=== PATIENT | female | born 1950 | race Native Hawaiian/Other Pacific Islander ===

== ENCOUNTER 2017-11-22 17:07 | Observation (INO) | payer BC ==
[2017-11-22] MEDS ORDERED: Sodium Chloride 0.9% 1,000 ML IV ONE (17:46)
--- NOTE | 2017-11-22 17:57 | C.PDOC ---
History Of Present Illness 66 y/o female presents to ED with complaint sof sudden onset llq abdominal "sharp" pain last night with associated nausea. Patient states last night pain lasted few hours and subsided, was able to sleep but this morning symptoms reoccurred. Patient reports pain is worse when standing, walking or moving. Patient saw Dr. Boucher for symptoms who advised she come to ED for further evaluation. Patient denies fever, chills, vomiting, diarrhea or any other complaints at this time. Time Seen by Provider: 11/22/17 17:41 Chief Complaint (Nursing): Abdominal Pain History Per: Patient History/Exam Limitations: no limitations Onset/Duration Of Symptoms: Days Current Symptoms Are (Timing): Still Present Location Of Pain/Discomfort: LLQ Past Medical History Reviewed: Historical Data, Nursing Documentation, Vital Signs Vital Signs: Last Vital Signs Temp 98 F 11/22/17 19:58 Pulse 74 11/22/17 19:58 Resp 20 11/22/17 19:58 BP 149/76 11/22/17 19:58 Pulse Ox 99 11/22/17 20:52 - Medical History PMH: HTN Surgical History: No Surg Hx Family History: States: No Known Family Hx - Social History Hx Alcohol Use: No Hx Substance Use: No - Immunization History Hx Tetanus Toxoid Vaccination: No Hx Influenza Vaccination: No Hx Pneumococcal Vaccination: No Review Of Systems Constitutional: Negative for: Fever, Chills Gastrointestinal: Positive for: Nausea, Abdominal Pain. Negative for: Vomiting , Diarrhea Genitourinary: Negative for: Dysuria Musculoskeletal: Negative for: Back Pain Skin: Negative for: Rash Neurological: Negative for: Weakness, Numbness Physical Exam - Physical Exam Appears: Non-toxic, Other (Uncomfortable) Skin: Warm, Dry, No Rash Head: Atraumatic, Normacephalic Oral Mucosa: Moist Neck: Normal ROM, Supple Cardiovascular: Rhythm Regular Respiratory: Normal Breath Sounds, No Rales, No Rhonchi, No Wheezing Gastrointestinal/Abdominal: Bowel Sounds (Active), Soft, Tenderness (LLQ ), Guarding, No Rebound Back: No CVA Tenderness Extremity: Normal ROM, Capillary Refill (<2 seconds) Neurological/Psych: Oriented x3 ED Course And Treatment - Laboratory Results Result Diagrams: 11/22/17 17:55 11/22/17 17:55 Lab Interpretation: No Acute Changes O2 Sat by Pulse Oximetry: 99 (RA) Pulse Ox Interpretation: Normal - CT Scan/US CT abdomen and pelvis Other Rad Studies (CT/US): Read By Radiologist, Radiology Report Reviewed CT/US Interpretation: Accession No. : [id number]. Patient Name / ID : ANGELICA MCCLELLAND / [id number]. Exam Date : 11/22/2017 18:14:15 ( Approved ). Study Comment : Sex / Age : F / 66Y. Creator : Oriana Devine MD. Dictator : Oriana Devine MD. Manufacturing Mechanic : Transportation Program Director : Oriana Devine MD. Approver2 : Report Date : 11/22/2017 18:42:12. My Comment : . PROCEDURE: CT Abdomen and Pelvis without Oral or IV contrast. HISTORY: abd pain. COMPARISON: None available. TECHNIQUE: Contiguous axial images of the abdomen and pelvis. No oral or IV contrast administered. Coronal and Sagittal reformats generated and reviewed. Radiation dose: Total exam DLP = 291.53 mGy-cm. This CT exam was performed using one or more of the following dose reduction techniques: Automated exposure control, adjustment of the mA and/ or kV according to patient size, and/or use of iterative reconstruction technique. FINDINGS: There is limited evaluation of the solid organs without the administration of IV contrast. LOWER THORAX: No visible consolidation, pleural effusion, or pneumothorax. LIVER: Unremarkable unenhanced appearance. GALLBLADDER AND BILE DUCTS: Cholelithiasis. PANCREAS: Unremarkable unenhanced appearance. SPLEEN: Unremarkable unenhanced appearance. ADRENALS: Unremarkable unenhanced appearance. KIDNEYS AND URETERS: No hydronephrosis or obstructing renal calculus. Pelvic calcifications favored to reflect phlebolith rather than distal ureteral calculi. BLADDER: The urinary bladder appears unremarkable. REPRODUCTIVE: Uterus is present. APPENDIX: No secondary signs of acute appendicitis. BOWEL: The stomach is nondistended. Lack of oral contrast limits evaluation for bowel pathology. The bowel loops appear within normal limits of caliber without evidence of intestinal obstruction. Moderate constipation. PERITONEUM: No significant free fluid. No definite free air. LYMPH NODES: No bulky lymphadenopathy identified. VASCULATURE: No aortic aneurysm. BONES: Vacuum disc phenomenon L5-S1. OTHER FINDINGS: None. IMPRESSION: Cholelithiasis. No hydronephrosis or obstructing renal calculus. Pelvic calcifications favored to reflect phlebolith rather than distal ureteral calculi. Moderate constipation. Reevaluation Time: 20:51 Reassessment Condition: Improved (but pain still occurring intermittently) - Physician Consult Information Time Consulting Physician Contacted: 20:52 Physician Contacted: aMria E Leong Outcome Of Conversation: Patient to remain in hospital on observation on Dr Dashawn Boucher service. Disposition - Disposition Disposition: HOSPITALIZED Disposition Time: 21:22 Condition: STABLE - POA Present On Arrival: None - Clinical Impression Clinical Impression: Abdominal pain, left lower quadrant - Scribe Statement The provider has reviewed the documentation as recorded by the Radha Del Real All medical record entries made by the Radha were at my direction and personally dictated by me. I have reviewed the chart and agree that the record accurately reflects my personal performance of the history, physical exam, medical decision making, and the department course for this patient. I have also personally directed, reviewed, and agree with the discharge instructions and disposition.
[2017-11-22] MEDS ORDERED: Sodium Chloride 0.9% 1,000 ML ONE (17:58)
[2017-11-22 18:00] LABS: BASO # 0.1 K/uL (0.0-0.2); BASO % 0.8 % (0.0-2.0); EOS % 0.5 % (0.0-4.0); HEMOGLOBIN 14.7 g/dL (11.0-16.0); LYMPH # 1.6 K/uL (1.0-4.3); LYMPH % 18.3 % (20.0-40.0); MEAN CELL VOLUME 93.2 fL (81.0-99.0); MEAN CORPUSCULAR HEMOGLOBIN 30.7 pg (27.0-31.0); MEAN PLATELET VOLUME 8.3 fL (7.2-11.7); MONO # 0.5 K/uL (0.0-0.8); MONO % 5.9 % (0.0-10.0); NEUT # 6.6 K/uL (1.8-7.0); NEUT % 74.5 % (50.0-75.0); NRBC % 0.2 % (0.0-2.0); RBC 4.77 Mil/uL (3.80-5.20); RED CELL DISTRIBUTION WIDTH 12.6 % (11.5-14.5); WHITE BLOOD COUNT 8.9 K/uL (4.8-10.8)
[2017-11-22 18:06] LABS: URINE AMORPHOUS SEDIMENT RARE /ul (<OCC); URINE BILIRUBIN NEGATIVE (NEGATIVE); URINE BLOOD NEGATIVE (NEGATIVE); URINE CLARITY Hazy (Clear); URINE COLOR Yellow (YELLOW); URINE GLUCOSE (UA) NORMAL (Normal); URINE LEUKOCYTE ESTERASE NEG Leu/uL (Negative); URINE NITRATE NEGATIVE (NEGATIVE); URINE PROTEIN NEGATIVE (NEGATIVE)
[2017-11-22 18:17] LABS: ALBUMIN 4.6 g/dL (3.5-5.0); ALT/SGPT 37 U/L (9-52); AST/SGOT 33 U/L (14-36); BLOOD UREA NITROGEN 12 mg/dL (7-17); CALCIUM 9.1 mg/dl (8.6-10.4); GFR AFRICAN-AMERICAN > 60; GFR NON-AFRICAN AMERICAN > 60; LIPASE 282 U/L (23-300)
[2017-11-22 18:27] LABS: ALB/GLOB RATIO 1.2 (1.0-2.1)
--- NOTE | 2017-11-22 18:44 | CT ---
PROCEDURE: CT Abdomen and Pelvis without Oral or IV contrast. HISTORY: abd pain COMPARISON: None available. TECHNIQUE: Contiguous axial images of the abdomen and pelvis. No oral or IV contrast administered. Coronal and Sagittal reformats generated and reviewed. Radiation dose: Total exam DLP = 291.53 mGy-cm. This CT exam was performed using one or more of the following dose reduction techniques: Automated exposure control, adjustment of the mA and/or kV according to patient size, and/or use of iterative reconstruction technique. FINDINGS: There is limited evaluation of the solid organs without the administration of IV contrast. LOWER THORAX: No visible consolidation, pleural effusion, or pneumothorax. LIVER: Unremarkable unenhanced appearance. GALLBLADDER AND BILE DUCTS: Cholelithiasis. PANCREAS: Unremarkable unenhanced appearance. SPLEEN: Unremarkable unenhanced appearance. ADRENALS: Unremarkable unenhanced appearance. KIDNEYS AND URETERS: No hydronephrosis or obstructing renal calculus. Pelvic calcifications favored to reflect phlebolith rather than distal ureteral calculi. BLADDER: The urinary bladder appears unremarkable. REPRODUCTIVE: Uterus is present. APPENDIX: No secondary signs of acute appendicitis. BOWEL: The stomach is nondistended. Lack of oral contrast limits evaluation for bowel pathology. The bowel loops appear within normal limits of caliber without evidence of intestinal obstruction. Moderate constipation. PERITONEUM: No significant free fluid. No definite free air. LYMPH NODES: No bulky lymphadenopathy identified. VASCULATURE: No aortic aneurysm. BONES: Vacuum disc phenomenon L5-S1. OTHER FINDINGS: None. IMPRESSION: Cholelithiasis. No hydronephrosis or obstructing renal calculus. Pelvic calcifications favored to reflect phlebolith rather than distal ureteral calculi. Moderate constipation.
[2017-11-22] MEDS ORDERED: MethylPREDNISolone 40 mg Vial IVP STA (22:46)
--- NOTE | 2017-11-22 23:11 | CP.PCM.CON ---
History of Present Illness - History of Present Illness History of Present Illness: General Surgery Consult Note for Dr. Mcpherson Reason for Consult: abdominal pain 66 F with PMH of HTN and afib presents for complaint abdominal pain. Patient reports pain has been present for 1 day. Patient was at home and states pain started suddenly. It lasted for a few hours but then subsided. The pain retunred in the morning so the patinet decided to see her PMD, Dr. Boucher. He instructed ca will to come to ED to be evaluated. SHe rates pain as severe intensity. She describes pain as constant and sharp located in LLQ without radiation. Pain is exacerbated by standing, walking, and moving but nothing specifically alleviates the pain. Denies fever/chills, cp, SOB, palpitations, nausea/vomiting/diarrhea. PMD: Dr. Boucher PMH: HTN, atrial fibrillation Meds: As per EMR Allergy: Shrimp PSH: and appendectomy FH: non-contributory Social: denies tobacco/Etoh/illicit drug use Review of Systems - Review of Systems All systems: reviewed and no additional remarkable complaints except (as per HPI ) Past Patient History - Past Social History Smoking Status: Never Smoked - CARDIAC Hx Hypertension: Yes - PSYCHIATRIC Hx Substance Use: No - SURGICAL HISTORY Hx Surgeries: Yes Hx Section: Yes (X2) Meds Allergies/Adverse Reactions: Allergies Allergy/AdvReac Type Severity Reaction Status Date / Time shrimp Allergy Mild ITCHING Verified 11/22/17 22:38 - Medications Medications: Current Medications Morphine Sulfate (Morphine) 1 mg IV Q6 PRN PRN Reason: Pain, moderate (4-7) Verapamil HCl (Calan Sr Tab) 120 mg PO DAILY DEONDRE Physical Exam - Constitutional Appears: Non-toxic, No Acute Distress - Head Exam Head Exam: ATRAUMATIC, NORMOCEPHALIC - Eye Exam Eye Exam: EOMI, Normal appearance - ENT Exam ENT Exam: Mucous Membranes Moist - Respiratory Exam Respiratory Exam: NORMAL BREATHING PATTERN - Cardiovascular Exam Cardiovascular Exam: REGULAR RHYTHM - GI/Abdominal Exam GI & Abdominal Exam: Normal Bowel Sounds, Soft, Tenderness (LLQ). absent: Distended, Firm, Guarding, Hernia, Rebound, Rigid - Extremities Exam Extremities exam: Positive for: normal capillary refill, pedal pulses present - Back Exam Back exam: absent: CVA tenderness (L), CVA tenderness (R) - Neurological Exam Neurological exam: Alert, CN II-XII Intact, Oriented x3 - Psychiatric Exam Psychiatric exam: Normal Affect, Normal Mood - Skin Skin Exam: Dry, Intact, Normal Color, Warm Results - Vital Signs Recent Vital Signs: Last Vital Signs Temp 98 F 11/22/17 19:58 Pulse 74 11/22/17 19:58 Resp 20 11/22/17 19:58 BP 149/76 11/22/17 19:58 Pulse Ox 99 11/22/17 21:23 - Labs Result Diagrams: 11/22/17 17:55 11/22/17 17:55 Labs: Laboratory Results - last 24 hr 11/22/17 11/22/17 11/22/17 17:55 17:55 17:55 WBC 8.9 RBC 4.77 Hgb 14.7 Hct 44.4 MCV 93.2 MCH 30.7 MCHC 33.0 RDW 12.6 Plt Count 247 MPV 8.3 Neut % (Auto) 74.5 Lymph % (Auto) 18.3 L [place] % (Auto) 5.9 Eos % (Auto) 0.5 Baso % (Auto) 0.8 Neut # 6.6 Lymph # 1.6 [place] # 0.5 Eos # 0.0 Baso # 0.1 Sodium 138 Potassium 4.0 Chloride 103 Carbon Dioxide 26 Anion Gap 14 BUN 12 Creatinine 0.8 Est GFR ( Amer) > 60 Est GFR (Non-Af Amer) > 60 Random Glucose 118 H Calcium 9.1 Total Bilirubin 0.7 AST 33 ALT 37 Alkaline Phosphatase 62 Total Protein 8.5 H Albumin 4.6 Globulin 3.9 Albumin/Globulin Ratio 1.2 Lipase 282 Urine Color Yellow Urine Clarity Hazy Urine pH 8.0 Ur Specific [place] 1.010 Urine Protein Negative Urine Glucose (UA) Normal Urine Ketones Negative Urine Blood Negative Urine Nitrate Negative Urine Bilirubin Negative Urine Urobilinogen 2.0 H Ur Leukocyte Esterase Neg Urine WBC (Auto) < 1 Urine RBC (Auto) 1 Amorphous Sediment Rare H Assessment & Plan - Assessment and Plan (Free Text) Plan: 66 F with abdominal pain -NPO -f/u CT abdomen/pelvis with PO contrast -Analgesics PRN -Serial abdominal exam -Medical management as per primary -Will discuss with Dr. Vida Black PGY1
[2017-11-22] MEDS ORDERED: MethylPREDNISolone 40 mg Vial ONE (23:12)
--- NOTE | 2017-11-22 23:24 | CP.PCM.HP ---
History of Present Illness - History of Present Illness History of Present Illness: cc: LLQ pain HPI: Pt is a 66 year old female from the [facility], worked as a nurse, retired, who presented at the office complaining of pain at the LLQ. Only significant hx was a large BM yesterday, and pt relates that when she is lying still on her back, pain appears to subside. Ambulation and siustained increased intraabdominal pressure produces pain at LLQ. Otherwise, pt denies any N/V/chgs in BM. PMHx is significant only for HTN and/or palpitations. Present on Admission - Present on Admission Any Indicators Present on Admission: No History of DVT/PE: No History of Uncontrolled Diabetes: No Urinary Catheter: No Decubitus Ulcer Present: No History Surgical Site Infection Following: None Review of Systems - Review of Systems Review of Systems: abdominal pain at LLQ Past Patient History - Tetanus Immunizations Tetanus Immunization: Unknown - Past Medical History & Family History Past Medical History?: Yes Past Family History: Reviewed and not pertinent - Past Social History Smoking Status: Never Smoked Chewing Tobacco Use: No Cigar Use: No Alcohol: None Drugs: Denies - CARDIAC Hx Hypertension: Yes - PSYCHIATRIC Hx Substance Use: No - SURGICAL HISTORY Hx Surgeries: Yes Hx Section: Yes (X2) Meds Allergies/Adverse Reactions: Allergies Allergy/AdvReac Type Severity Reaction Status Date / Time shrimp Allergy Mild ITCHING Verified 11/22/17 22:38 Physical Exam - Constitutional Appears: Non-toxic, No Acute Distress - Head Exam Head Exam: NORMAL INSPECTION - Eye Exam Eye Exam: Normal appearance Pupil Exam: NORMAL ACCOMODATION - Neck Exam Neck exam: Positive for: Full Rom - Respiratory Exam Respiratory Exam: NORMAL BREATHING PATTERN - Cardiovascular Exam Cardiovascular Exam: Diastolic murmur - GI/Abdominal Exam GI & Abdominal Exam: Normal Bowel Sounds Additional comments: + tenderness at LLQ 2" Left of umbilicus and 2" above the inguinal crease - Rectal Exam Rectal Exam: Deferred - Exam Exam: NORMAL INSPECTION External exam: NORMAL EXTERNAL EXAM - Extremities Exam Extremities exam: Positive for: normal inspection - Back Exam Back exam: NORMAL INSPECTION - Neurological Exam Neurological exam: Normal Gait - Psychiatric Exam Psychiatric exam: Normal Affect - Skin Skin Exam: Intact, Normal Color Results - Vital Signs Recent Vital Signs: Last Vital Signs Temp 98 F 11/22/17 19:58 Pulse 74 11/22/17 19:58 Resp 20 11/22/17 19:58 BP 149/76 11/22/17 19:58 Pulse Ox 99 11/22/17 21:23 - Labs Result Diagrams: 11/22/17 17:55 11/22/17 17:55 Labs: Laboratory Results - last 24 hr 11/22/17 11/22/17 11/22/17 17:55 17:55 17:55 WBC 8.9 RBC 4.77 Hgb 14.7 Hct 44.4 MCV 93.2 MCH 30.7 MCHC 33.0 RDW 12.6 Plt Count 247 MPV 8.3 Neut % (Auto) 74.5 Lymph % (Auto) 18.3 L [place] % (Auto) 5.9 Eos % (Auto) 0.5 Baso % (Auto) 0.8 Neut # 6.6 Lymph # 1.6 [place] # 0.5 Eos # 0.0 Baso # 0.1 Sodium 138 Potassium 4.0 Chloride 103 Carbon Dioxide 26 Anion Gap 14 BUN 12 Creatinine 0.8 Est GFR ( Amer) > 60 Est GFR (Non-Af Amer) > 60 Random Glucose 118 H Calcium 9.1 Total Bilirubin 0.7 AST 33 ALT 37 Alkaline Phosphatase 62 Total Protein 8.5 H Albumin 4.6 Globulin 3.9 Albumin/Globulin Ratio 1.2 Lipase 282 Urine Color Yellow Urine Clarity Hazy Urine pH 8.0 Ur Specific [place] 1.010 Urine Protein Negative Urine Glucose (UA) Normal Urine Ketones Negative Urine Blood Negative Urine Nitrate Negative Urine Bilirubin Negative Urine Urobilinogen 2.0 H Ur Leukocyte Esterase Neg Urine WBC (Auto) < 1 Urine RBC (Auto) 1 Amorphous Sediment Rare H Assessment & Plan (1) Abdominal pain, left lower quadrant Status: Acute Priority: High Comment: will determine with certainty whether pt is having functional motility issues of the GI tractd vs a hernia problem and will keep the pt at least overnight to determine progress of complaint. Decision To Admit - Pt Status Changed To: Hospital Disposition Of: Inpatient - Admit Certification Admit to Inpatient:: After my assessment, the patient will require hospitalization for at least two midnights. This is because of the severity of symptoms shown, intensity of services needed, and/or the medical risk in this patient being treated as an outpatient. - InPatient: Physician Admission Certification:: Pt will require admission for inpatient work up and consultation as my impression of an incarcerated hernia may prove life-threatening should rupture of viscus happen. - . Bed Request Type: Regular
[2017-11-22] MEDS: Verapamil 120 mg ER Tab PO SCH (23:29)
[2017-11-23] MEDS ORDERED: Iohexol 240 (50 ml) ONE (00:34)
[2017-11-23] MEDS ORDERED: Iohexol 240 (50 ml) PO ONE (00:35)
--- NOTE | 2017-11-23 03:23 | CT ---
EXAM: CT Abdomen and Pelvis Without Intravenous Contrast CLINICAL HISTORY: 66 years old, female; Pain; Abdominal pain and other: Suspected ventral hernia; Patient HX: 11-22-17 TECHNIQUE: Axial computed tomography images of the abdomen and pelvis without intravenous contrast. All CT scans at this facility use one or more dose reduction techniques, viz.: automated exposure control; ma/kV adjustment per patient size (including targeted exams where dose is matched to indication; i.e. head); or iterative reconstruction technique. Oral contrast was administered. 583 images are submitted. Oral contrast was administered. Coronal and sagittal reformatted images were created and reviewed. COMPARISON: No relevant prior studies available. FINDINGS: Lower thorax: No acute findings. ABDOMEN:Limitations: Absence of IV contrast decreases sensitivity for detecting solid organ and vascular abnormality and injury. Liver: Unremarkable. Gallbladder and bile ducts: Partially distended gallbladder with gallstones gallbladder wall thickening.If clinically warranted, a right upper quadrant ultrasound and correlation with LFTs may be helpful for further assessment. Pancreas: Unremarkable. No ductal dilation. Spleen: Unremarkable. No splenomegaly. Adrenals: Unremarkable. No mass. Kidneys and ureters: Unremarkable. No obstructing stones. No hydronephrosis. Stomach and bowel: Unremarkable. No obstruction. No mucosal thickening. Appendix: The appendix is not seen. PELVIS: Bladder: Partially distended bladder. Reproductive: Retroverted uterus. ABDOMEN and PELVIS: Intraperitoneal space: Unremarkable. No free air. No significant fluid collection. Bones/joints: L5-S1 vacuum degenerative disc disease. No acute fracture. No dislocation. Soft tissues: Unremarkable. Vasculature: Pelvic phleboliths. The aorta demonstrates calcified plaque and is mildly ectatic but normal in caliber. No abdominal aortic aneurysm. Lymph nodes: Unremarkable. No enlarged lymph nodes. IMPRESSION: 1. Partially distended gallbladder with gallstones gallbladder wall thickening.If clinically warranted, a right upper quadrant ultrasound and correlation with LFTs may be helpful for further assessment.
--- NOTE | 2017-11-23 09:00 | CP.PCM.PN ---
Subjective - Date & Time of Evaluation Date of Evaluation: 11/23/17 Time of Evaluation: 08:57 - Subjective Subjective: Surgery Pt s&e. NAEON. Denies F/C/N/V/D/Cp/SOB. pain controlled. Objective - Vital Signs/Intake and Output Vital Signs (last 24 hours): Temp Pulse Resp BP Pulse Ox 98.0 F 80 16 118/69 97 11/23/17 08:24 11/23/17 08:24 11/23/17 08:24 11/23/17 08:24 11/23/17 08:24 - Medications Medications: Current Medications Docusate Sodium (Colace) 100 mg PO DAILY [facility] Enoxaparin Sodium (Lovenox) 30 mg SC 1000,2200 [facility] Morphine Sulfate (Morphine) 1 mg IV Q6 PRN PRN Reason: Pain, moderate (4-7) Verapamil HCl (Calan Sr Tab) 120 mg PO DAILY DEONDRE Last Admin: 11/22/17 23:29 Dose: 120 mg - Labs Labs: 11/22/17 17:55 11/22/17 17:55 - Constitutional Appears: No Acute Distress - Head Exam Head Exam: ATRAUMATIC, NORMAL INSPECTION, NORMOCEPHALIC - Eye Exam Eye Exam: EOMI, Normal appearance, PERRL Pupil Exam: NORMAL ACCOMODATION, PERRL - ENT Exam ENT Exam: Mucous Membranes Moist, Normal Exam - Neck Exam Neck Exam: Full ROM, Normal Inspection. absent: Lymphadenopathy - Respiratory Exam Respiratory Exam: Clear to Ausculation Bilateral, NORMAL BREATHING PATTERN - Cardiovascular Exam Cardiovascular Exam: REGULAR RHYTHM, +S1, +S2. absent: Murmur - GI/Abdominal Exam GI & Abdominal Exam: Soft, Tenderness, Normal Bowel Sounds. absent: Distended, Firm, Guarding, Rigid, Hernia - Extremities Exam Extremities Exam: Full ROM, Normal Capillary Refill, Normal Inspection. absent : Joint Swelling, Pedal Edema - Back Exam Back Exam: NORMAL INSPECTION - Psychiatric Exam Psychiatric exam: Normal Affect, Normal Mood - Skin Skin Exam: Dry, Intact, Normal Color, Warm Assessment and Plan - Assessment and Plan (Free Text) Assessment: 66 F with abdominal pain: No venral or inguinal hernia appreciated. CT : constipation -No surgical intervention needed. -Regular diet. -Enema/ Stool softner. -Analgesics PRN -Medical management as per primary -Discussed with Dr. Mcpherson
[2017-11-23] MEDS: Enoxaparin 30 mg Syringe SC SCH ×2 (11:02→22:10)
[2017-11-23] MEDS: Verapamil 120 mg ER Tab PO SCH (11:03)
[2017-11-23 14:36] VITALS: RESP 20
[2017-11-23] MEDS ORDERED: Verapamil 120 mg ER Tab PO SCH (22:00)
--- NOTE | 2017-11-24 06:32 | CP.PCM.DIS ---
Provider - Provider Date of Admission: 11/22/17 21:23 Attending physician: Dashawn Boucher MD Primary care physician: Dr. Maria E Boucher-Chelo Consults: Surgery: Dr. Ozzie Mcpherson Time Spent in preparation of Discharge (in minutes): 30 Diagnosis - Discharge Diagnosis (1) Abdominal pain, left lower quadrant Status: Acute Priority: High Comment: appears resolved Hospital Course - Lab Results Lab Results: Micro Results 11/22/17 18:06 Urine Urine Culture - Final No Growth (<1,000 CFU/ML) Most Recent Lab Values WBC 8.9 K/uL (4.8-10.8) 11/22/17 17:55 RBC 4.77 Mil/uL (3.80-5.20) 11/22/17 17:55 Hgb 14.7 g/dL (11.0-16.0) 11/22/17 17:55 Hct 44.4 % (34.0-47.0) 11/22/17 17:55 MCV 93.2 fL (81.0-99.0) 11/22/17 17:55 MCH 30.7 pg (27.0-31.0) 11/22/17 17:55 MCHC 33.0 g/dL (33.0-37.0) 11/22/17 17:55 RDW 12.6 % (11.5-14.5) 11/22/17 17:55 Plt Count 247 K/uL (130-400) 11/22/17 17:55 MPV 8.3 fL (7.2-11.7) 11/22/17 17:55 Neut % (Auto) 74.5 % (50.0-75.0) 11/22/17 17:55 Lymph % (Auto) 18.3 % (20.0-40.0) L 11/22/17 17:55 [place] % (Auto) 5.9 % (0.0-10.0) 11/22/17 17:55 Eos % (Auto) 0.5 % (0.0-4.0) 11/22/17 17:55 Baso % (Auto) 0.8 % (0.0-2.0) 11/22/17 17:55 Neut # 6.6 K/uL (1.8-7.0) 11/22/17 17:55 Lymph # 1.6 K/uL (1.0-4.3) 11/22/17 17:55 Dickenson # 0.5 K/uL (0.0-0.8) 11/22/17 17:55 Eos # 0.0 K/uL (0.0-0.7) 11/22/17 17:55 Baso # 0.1 K/uL (0.0-0.2) 11/22/17 17:55 Sodium 138 mmol/L (132-148) 11/22/17 17:55 Potassium 4.0 mmol/L (3.6-5.2) 11/22/17 17:55 Chloride 103 mmol/L (98-107) 11/22/17 17:55 Carbon Dioxide 26 mmol/L (22-30) 11/22/17 17:55 Anion Gap 14 (10-20) 11/22/17 17:55 BUN 12 mg/dL (7-17) 11/22/17 17:55 Creatinine 0.8 mg/dL (0.7-1.2) 11/22/17 17:55 Est GFR ( Amer) > 60 11/22/17 17:55 Est GFR (Non-Af Amer) > 60 11/22/17 17:55 Random Glucose 118 mg/dL (65-105) H 11/22/17 17:55 Calcium 9.1 mg/dl (8.6-10.4) 11/22/17 17:55 Total Bilirubin 0.7 mg/dL (0.2-1.3) 11/22/17 17:55 AST 33 U/L (14-36) 11/22/17 17:55 ALT 37 U/L (9-52) 11/22/17 17:55 Alkaline Phosphatase 62 U/L (38-126) 11/22/17 17:55 Total Protein 8.5 g/dL (6.3-8.3) H 11/22/17 17:55 Albumin 4.6 g/dL (3.5-5.0) 11/22/17 17:55 Globulin 3.9 gm/dL (2.2-3.9) 11/22/17 17:55 Albumin/Globulin Ratio 1.2 (1.0-2.1) 11/22/17 17:55 Lipase 282 U/L (23-300) 11/22/17 17:55 Urine Color Yellow (YELLOW) 11/22/17 17:55 Urine Clarity Hazy (Clear) 11/22/17 17:55 Urine pH 8.0 (5.0-8.0) 11/22/17 17:55 Ur Specific [place] 1.010 (1.003-1.030) 11/22/17 17:55 Urine Protein Negative mg/dL (NEGATIVE) 11/22/17 17:55 Urine Glucose (UA) Normal mg/dL (Normal) 11/22/17 17:55 Urine Ketones Negative mg/dL (NEGATIVE) 11/22/17 17:55 Urine Blood Negative (NEGATIVE) 11/22/17 17:55 Urine Nitrate Negative (NEGATIVE) 11/22/17 17:55 Urine Bilirubin Negative (NEGATIVE) 11/22/17 17:55 Urine Urobilinogen 2.0 mg/dL (0.2-1.0) H 11/22/17 17:55 Ur Leukocyte Esterase Neg Rosanna/uL (Negative) 11/22/17 17:55 Urine WBC (Auto) < 1 /hpf (0-5) 11/22/17 17:55 Urine RBC (Auto) 1 /hpf (0-3) 11/22/17 17:55 Amorphous Sediment Rare /ul (<OCC) H 11/22/17 17:55 - Hospital Course Hospital Course: Pt Patient was admitted with left lower quadrant abdominal pain confined mainly to area 2 inches to the left of the umbilicus and 2 inches above the inquinal crease. Evaluation of the ER did not show any pathology as well as a final CT scan of abdomen with oral contrast. Pain still persisted until patient had another significant BM. Patient was discharged home stable with no pain Discharge Exam - Head Exam Head Exam: NORMAL INSPECTION - Eye Exam Eye Exam: Normal appearance Pupil Exam: NORMAL ACCOMODATION - ENT Exam ENT Exam: Normal Exam - Neck Exam Neck exam: Normal Inspection - Respiratory Exam Respiratory Exam: Clear to PA & Lateral, NORMAL BREATHING PATTERN - Cardiovascular Exam Cardiovascular Exam: REGULAR RHYTHM - GI/Abdominal Exam GI & Abdominal Exam: Normal Bowel Sounds - Rectal Exam Rectal Exam: Deferred - Extremities Exam Extremities exam: normal inspection - Back Exam Back exam: NORMAL INSPECTION - Neurological Exam Neurological exam: Normal Gait - Psychiatric Exam Psychiatric exam: Normal Affect, Normal Mood - Skin Skin Exam: Normal Color Discharge Plan - Follow Up Plan Condition: STABLE Disposition: HOME/ ROUTINE Additional Instructions: > Pt to follow up at office with Dr. Maria E Boucher-Chelo for referral to GI ( Dr. Casillas) for outpatient colonoscopy. > Continue taking verapamil SR at home. > IF any new symtpoms occur or in the interim when Dr. Ifeanyi Boucher is away, pt ay call [phone] (Dr. Heladio Boucher) for instructions
[2017-11-24 08:03] VITALS: BP 114/68; PULSE 68; TEMP 98; O2SAT 96
[2017-11-24] MEDS ORDERED: Verapamil 120 mg ER Tab PO SCH (10:00)
== END 2017-11-24 14:08 | disposition home or self-care (01) ==
LOC: C.ER 17:07 → C.9E 21:23 → C.3T 11-23 12:20
PROVIDERS: ADMIT Family Medicine; ATTEND Family Medicine
DX: R10.32 Left lower quadrant pain (principal); I48.91 Unspecified atrial fibrillation; I10 Essential (primary) hypertension
CPT/HCPCS: 36415; 74176; 80053; 81001; 82378; 83690; 85025; 87086; 96360; 96372; 96374; 99285; G0378; J1650; J2920; J7040; Q9966

== ENCOUNTER 2019-01-16 09:50 | Inpatient (IN) | payer MEDICARE, BC ==
[2019-01-16] MEDS ORDERED: Sodium Chloride 0.9% 1,000 ML IV SCH (10:30)
--- NOTE | 2019-01-16 10:41 | C.PDOC ---
History Of Present Illness 68 year old female sent to ED by Dr. Boston for redness and swelling to the third finger of the distal phalanx of the right hand. Patient is to be admitted to the OR for I&D, as per Dr. Boston. Patient has a past medical history of hypertension. Patient denies fever, chills, numbness, or weakness. Time Seen by Provider: 01/16/19 10:03 Chief Complaint (Nursing): Abnormal Skin Integrity History Per: Patient History/Exam Limitations: no limitations Onset/Duration Of Symptoms: Unknown Current Symptoms Are (Timing): Still Present Location Of Injury: Right: Hand (third finger) Quality Of Symptoms: Painful, Swollen Additional History Per: Patient Past Medical History Reviewed: Historical Data, Nursing Documentation, Vital Signs Vital Signs: Last Vital Signs Temp 98 F 01/16/19 09:59 Pulse 90 01/16/19 09:59 Resp 16 01/16/19 09:59 BP 156/81 H 01/16/19 09:59 Pulse Ox 98 01/16/19 09:59 - Medical History PMH: HTN Surgical History: No Surg Hx Family History: States: Unknown Family Hx - Social History Hx Alcohol Use: No Hx Substance Use: No - Immunization History Hx Tetanus Toxoid Vaccination: No Hx Influenza Vaccination: No Hx Pneumococcal Vaccination: No Review Of Systems Constitutional: Negative for: Fever, Chills, Weakness Musculoskeletal: Positive for: Other (redness and swelling to the third finger of the distal phalanx of the right hand) Skin: Positive for: Other (finger swelling) Neurological: Negative for: Weakness, Numbness, Dizziness Physical Exam - Physical Exam Appears: Non-toxic Skin: Normal Color, Warm, Dry Head: Atraumatic, Normacephalic Neck: Normal ROM, Supple Chest: Symmetrical, No Deformity Cardiovascular: Rhythm Regular, No Murmur Respiratory: No Accessory Muscle Use Extremity: Swelling (swelling and redness to the third finger of the distal phalanx of the right hand) Pulses: Left Radial: Normal, Right Radial: Normal Neurological/Psych: Oriented x3, Normal Speech, Normal Cognition Gait: Steady ED Course And Treatment - Laboratory Results Result Diagrams: 01/16/19 11:18 Lab Interpretation: Normal ECG: Interpreted By Oh ECG Rhythm: Sinus Rhythm, Nonspecific Changes ECG Interpretation: No Acute Changes Rate From EC O2 Sat by Pulse Oximetry: 98 (in RA) Pulse Ox Interpretation: Normal - Other Rad CXR X-Ray: Interpreted by Me, Viewed By Me Interpretation: IMPRESSION: Emphysema/COPD. No focal consolidation. Progress Note: IVF NSS Reassessment Condition: Improved Medical Decision Making Medical Decision Making: Impression: 68 year old female present to ED with redness and swelling to the distal phalanx of the right hand Plan: EKG and CXR ordered for patient Labs with UA and CBC ordered for patient Patient given IV fluids Patient is to be admitted to the OR for I and D as per Disposition Discussed With .: Raad Boston Doctor Will See Patient In The: Hospital - Disposition Disposition: HOSPITALIZED Disposition Time: 11:00 Condition: STABLE - POA Present On Arrival: None - Clinical Impression Clinical Impression: Cellulitis - PA / SHEET WRITER / Resident Statement MD/DO has reviewed & agrees with the documentation as recorded. (Shreya Guzman) - Scribe Statement The provider has reviewed the documentation as recorded by the Scribe (Shreya Guzman) All medical record entries made by the Scribe were at my direction and personally dictated by me. I have reviewed the chart and agree that the record accurately reflects my personal performance of the history, physical exam, medical decision making, and the department course for this patient. I have also personally directed, reviewed, and agree with the discharge instructions and disposition.
--- NOTE | 2019-01-16 11:06 | RAD ---
HISTORY: SOB COMPARISON: None available TECHNIQUE: Chest PA and lateral FINDINGS: LUNGS: Increased lucencies especially within the bilateral upper lung lou compatible with underlying emphysema. Hyperinflation with flattening of the hemidiaphragm may be seen in the setting of COPD. No focal consolidation. Please note that chest x-ray has limited sensitivity for the detection of pulmonary masses. PLEURA: No significant pleural effusion identified. No definite pneumothorax . CARDIOVASCULAR: Heart size appears within normal limits. Faint atherosclerotic calcifications of the aorta. OSSEOUS STRUCTURES: Osseous demineralization. Mild degenerative changes. VISUALIZED UPPER ABDOMEN: Unremarkable. OTHER FINDINGS: None. IMPRESSION: Emphysema/COPD. No focal consolidation.
[2019-01-16 11:31] LABS: SQUAMOUS EPITHIAL < 1 /hpf (0-5); URINE BILIRUBIN NEGATIVE (NEGATIVE); URINE BLOOD NEGATIVE (NEGATIVE); URINE CLARITY Clear (Clear); URINE COLOR Straw (YELLOW); URINE GLUCOSE (UA) NORMAL (Normal); URINE LEUKOCYTE ESTERASE NEG Leu/uL (Negative); URINE PROTEIN NEGATIVE (NEGATIVE); URINE UROBILINOGEN NORMAL mg/dL (0.2-1.0)
[2019-01-16 11:33] LABS: BASO # 0.1 K/uL (0.0-0.2); BASO % 1.3 % (0.0-2.0); EOS # 0.1 K/uL (0.0-0.7); EOS % 2.3 % (0.0-4.0); HEMOGLOBIN 14.3 g/dL (11.0-16.0); LYMPH # 1.5 K/uL (1.0-4.3); LYMPH % 28.9 % (20.0-40.0); MEAN CORPUSCULAR HEMOGLOBIN 31.6 pg (27.0-31.0); MEAN CORPUSCULAR HGB CONC 32.8 g/dL (33.0-37.0); MEAN PLATELET VOLUME 9.4 fL (7.2-11.7); MONO # 0.4 K/uL (0.0-0.8); MONO % 7.2 % (0.0-10.0); NEUT # 3.2 K/uL (1.8-7.0); NEUT % 60.3 % (50.0-75.0); NRBC % 0.1 % (0.0-2.0); RBC 4.54 Mil/uL (3.80-5.20); RED CELL DISTRIBUTION WIDTH 13.6 % (11.5-14.5); WHITE BLOOD COUNT 5.3 K/uL (4.8-10.8)
[2019-01-16 11:34] LABS: MEAN CELL VOLUME 96.3 fL (81.0-99.0)
[2019-01-16 11:51] LABS: ALB/GLOB RATIO 1.5 (1.0-2.1); ALBUMIN 4.6 g/dL (3.5-5.0); BLOOD UREA NITROGEN 14 mg/dL (7-17); CALCIUM 9.2 mg/dl (8.6-10.4); GFR NON-AFRICAN AMERICAN > 60
[2019-01-16 11:55] LABS: ALT/SGPT 28 U/L (9-52); AST/SGOT 50 U/L (14-36)
[2019-01-16] MEDS ORDERED: Lidocaine Hydrochloride 10 ML INJ ONE (14:14)
[2019-01-16] MEDS ORDERED: Bupivacaine HCl 0.5% PF (10 ml) Inj ONE (14:14)
[2019-01-16] MEDS ORDERED: ceFAZolin 1 gm in NS 1 GM/100 ML BAG IVPB ONE (14:14)
[2019-01-16] MEDS ORDERED: Bacitracin Ointment 30 GM TUBE ONE (14:39)
[2019-01-16] MEDS ORDERED: Lactated Ringer's 1,000 ML IV ONE (14:45)
[2019-01-16] MEDS ORDERED: Oxycodone/Acetaminophen 5/325 mg Tab PO PRN (15:08)
--- NOTE | 2019-01-16 21:17 | CP.PCM.CON ---
<SajitimAlinapavan - Last Filed: 01/16/19 21:10> History of Present Illness - History of Present Illness History of Present Illness: Medicine Consult Note 68 year old female with PMHx of HTN admitted for treatment of infected ganglion cyst on the 3rd digit of Right hand. Patient is POD # 0 s/p ganglion cyst removal/I&D. Medicine team consulted for medical management. Patient offers no complaints at this time. ROS POSITIVES: N/A NEGATIVES: Fever, chills, headache, chest pain, palpitations, SOB, nausea, vomiting, changes in bowel habits, urinary symptoms. PMHx: HTN PSHx: x 2 Allergies: NKDA SocialHx: Denies tobacco, EtoH, & Illicit Drug USe Hos: LLQ Abdominal Pain in 2018, Palpitations FamHx: Denies Meds: Verapamil HCL (Verelan PM) 100mg PO HS Review of Systems - Review of Systems Review of Systems: As per HPI Past Patient History - Tetanus Immunizations Tetanus Immunization: Unknown - Past Medical History & Family History Past Medical History?: Yes - Past Social History Smoking Status: Never Smoked - CARDIAC Hx Hypertension: Yes - MUSCULOSKELETAL/RHEUMATOLOGICAL Hx Falls: No - PSYCHIATRIC Hx Substance Use: No - SURGICAL HISTORY Hx Surgeries: Yes Hx Section: Yes (X2) Meds Allergies/Adverse Reactions: Allergies Allergy/AdvReac Type Severity Reaction Status Date / Time No Known Allergies Allergy Verified 01/16/19 10:01 - Medications Medications: Current Medications Diltiazem HCl (Cardizem Cd) 120 mg PO HS DEONDRE Sodium Chloride (Sodium Chloride 0.9%) 1,000 mls @ 100 mls/hr IV .Q10H [facility] Last Admin: 01/16/19 11:35 Dose: 100 mls/hr Cefazolin Sodium 1,000 mg/ (Sodium Chloride) 100 mls @ 100 mls/hr IVPB Q8H DEONDRE; Protocol Oxycodone/Acetaminophen (Percocet 5/325 Mg Tab) 2 tab PO Q4H PRN PRN Reason: pain Stop: 01/19/19 15:09 Physical Exam - Constitutional Appears: Well, Non-toxic, No Acute Distress - Head Exam Head Exam: ATRAUMATIC, NORMAL INSPECTION, NORMOCEPHALIC - Eye Exam Eye Exam: EOMI. absent: Scleral icterus - ENT Exam ENT Exam: Mucous Membranes Moist - Respiratory Exam Respiratory Exam: Clear to Auscultation Bilateral, NORMAL BREATHING PATTERN. absent: Accessory Muscle Use - Cardiovascular Exam Cardiovascular Exam: RRR, +S1, +S2. absent: JVD - GI/Abdominal Exam GI & Abdominal Exam: Normal Bowel Sounds, Soft. absent: Tenderness - Extremities Exam Extremities exam: Positive for: normal capillary refill. Negative for: pedal edema Additional comments: Right Hand with Dressing (Clean, Dry, and intact), Decreased Sensation if right distal upper Ext. s/p Anaesthesia, 2+ radial pulses B/L, No Motor deficit.. - Neurological Exam Neurological exam: Alert, Oriented x3 - Psychiatric Exam Psychiatric exam: Normal Affect, Normal Mood - Skin Skin Exam: Dry, Intact, Normal Color, Warm Results - Vital Signs Recent Vital Signs: Last Vital Signs Temp 97.5 F L 01/16/19 18:21 Pulse 75 01/16/19 18:21 Resp 18 01/16/19 18:21 BP 138/73 01/16/19 18:21 Pulse Ox 97 01/16/19 18:21 - Labs Result Diagrams: 01/16/19 11:18 01/16/19 11:18 Labs: Laboratory Results - last 24 hr 01/16/19 01/16/19 01/16/19 11:18 11:18 11:18 WBC 5.3 RBC 4.54 Hgb 14.3 Hct 43.7 MCV 96.3 D MCH 31.6 H MCHC 32.8 L RDW 13.6 Plt Count 162 MPV 9.4 Neut % (Auto) 60.3 Lymph % (Auto) 28.9 [place] % (Auto) 7.2 Eos % (Auto) 2.3 Baso % (Auto) 1.3 Neut # (Auto) 3.2 Lymph # (Auto) 1.5 [place] # (Auto) 0.4 Eos # (Auto) 0.1 Baso # (Auto) 0.1 Sodium 139 Potassium 4.1 Chloride 106 Carbon Dioxide 25 Anion Gap 11 BUN 14 Creatinine 0.7 Est GFR ( Amer) > 60 Est GFR (Non-Af Amer) > 60 Random Glucose 109 H Calcium 9.2 Total Bilirubin 0.8 AST 50 H D ALT 28 Alkaline Phosphatase 65 Total Protein 7.8 Albumin 4.6 Globulin 3.2 Albumin/Globulin Ratio 1.5 Urine Color Straw Urine Clarity Clear Urine pH 7.0 Ur Specific [place] 1.009 Urine Protein Negative Urine Glucose (UA) Normal Urine Ketones Negative Urine Blood Negative Urine Nitrate Negative Urine Bilirubin Negative Urine Urobilinogen Normal Ur Leukocyte Esterase Neg Urine WBC (Auto) < 1 Urine RBC (Auto) < 1 Ur Squamous Epith Cells < 1 Assessment & Plan - Assessment and Plan (Free Text) Assessment: 68 year old female with PMHx of HTN admitted for treatment of infected ganglion cyst on the 3rd digit of Right hand. . Medicine team consulted for medical management Plan: Right Hand 3rd Digit Ganglion Cyst/Abscess. Mgmt per Primary (Dr. Boston) Cefazolin 1gram Q8H Percocet 2tabs PO Q4H PRN NS 100mls/hr HTN Mgmt: Home Verapamil (Capsule form) not in formulary Replaced with Cardizem 120mg PO HS Proph SCD Patient seen and discussed with Attending (Dr. Dao) Yon Paulson, PGY-2 <Omar Dao - Last Filed: 01/17/19 07:48> Meds - Medications Medications: Current Medications Diltiazem HCl (Cardizem Cd) 120 mg PO HS DEONDRE Last Admin: 01/16/19 22:08 Dose: 120 mg Sodium Chloride (Sodium Chloride 0.9%) 1,000 mls @ 100 mls/hr IV .Q10H [facility] Last Admin: 01/16/19 11:35 Dose: 100 mls/hr Cefazolin Sodium 1,000 mg/ (Sodium Chloride) 100 mls @ 100 mls/hr IVPB Q8H DEONDRE; Protocol Last Admin: 01/17/19 06:20 Dose: 100 mls/hr Oxycodone/Acetaminophen (Percocet 5/325 Mg Tab) 2 tab PO Q4H PRN PRN Reason: pain Stop: 01/19/19 15:09 Results - Vital Signs Recent Vital Signs: Last Vital Signs Temp 97.5 F L 01/17/19 04:30 Pulse 67 01/17/19 04:30 Resp 20 01/17/19 04:30 BP 111/65 01/17/19 04:30 Pulse Ox 97 01/17/19 04:30 - Labs Result Diagrams: 01/16/19 11:18 01/16/19 11:18 Labs: Laboratory Results - last 24 hr 01/16/19 01/16/19 01/16/19 11:18 11:18 11:18 WBC 5.3 RBC 4.54 Hgb 14.3 Hct 43.7 MCV 96.3 D MCH 31.6 H MCHC 32.8 L RDW 13.6 Plt Count 162 MPV 9.4 Neut % (Auto) 60.3 Lymph % (Auto) 28.9 [place] % (Auto) 7.2 Eos % (Auto) 2.3 Baso % (Auto) 1.3 Neut # (Auto) 3.2 Lymph # (Auto) 1.5 [place] # (Auto) 0.4 Eos # (Auto) 0.1 Baso # (Auto) 0.1 Sodium 139 Potassium 4.1 Chloride 106 Carbon Dioxide 25 Anion Gap 11 BUN 14 Creatinine 0.7 Est GFR ( Amer) > 60 Est GFR (Non-Af Amer) > 60 Random Glucose 109 H Calcium 9.2 Total Bilirubin 0.8 AST 50 H D ALT 28 Alkaline Phosphatase 65 Total Protein 7.8 Albumin 4.6 Globulin 3.2 Albumin/Globulin Ratio 1.5 Urine Color Straw Urine Clarity Clear Urine pH 7.0 Ur Specific [place] 1.009 Urine Protein Negative Urine Glucose (UA) Normal Urine Ketones Negative Urine Blood Negative Urine Nitrate Negative Urine Bilirubin Negative Urine Urobilinogen Normal Ur Leukocyte Esterase Neg Urine WBC (Auto) < 1 Urine RBC (Auto) < 1 Ur Squamous Epith Cells < 1 Attending/Attestation - Attestation I have personally seen and examined this patient.: Yes I have fully participated in the care of the patient.: Yes I have reviewed all pertinent clinical information: Yes Notes (Text): 01/17/19 07:42 Medical consult: Patient was seen and examined by me. Reviewed the above note by the resident and agree with the above Patient was seen on 6T last night. She was not in any acute distress, denies chest pain, denied shortness of breath, denies palpitations Her current medication include cardizem. There is already an order for percocet however the patient reports she is not in any pain at this time She is S/P surgery of ganglion cyst. I was informed the patient is going back to OR again and then potentially discharged afterwards Omar Dao
[2019-01-16] MEDS: diltiaZEM 120 mg/24 Hours CD Cap PO SCH (22:08)
[2019-01-17 00:39] VITALS: RESP 20
--- NOTE | 2019-01-17 06:12 | OP ---
PROCEDURE DATE: 01/16/2019 PREOPERATIVE DIAGNOSES: 1. Infected mass of the right third finger. 2. A 3 cm mass at the base of the right third finger. POSTOPERATIVE DIAGNOSES: 1. Infected mass of the right third finger. 2. A 2 cm mass at the base of the right third finger. SURGEON: Raad Boston MD TYPE OF ANESTHESIA: General. BLOOD LOSS: 20 mL. POSTOPERATIVE CONDITION: Stable. INDICATION FOR SURGERY: This is a 68-year-old female who presents with a painful infected mass of her right third fingertip. It is also associated with 3 cm mass at the base of her finger. She will undergo excision of both under local anesthesia. DESCRIPTION OF PROCEDURE: The patient was taken to the operating room. The right hand, wrist, and forearm were prepped and draped. A digital block of 0.25% Marcaine and 1% lidocaine was placed, and the right third finger was anesthetized. The mass at the fingertip was excised by an incision across the base, removal and drainage of underlying pus. Bleeding was controlled using a Bovie. It was very close to the bone, and it was possibly suspicious for osteomyelitis. Next, an elliptical incision was made surrounding the mass at the base of the finger. It was excised and a tissue flap closure was performed. A digital blood vessel was repaired. The wound was dressed sterilely. The patient tolerated the procedure well, returned to recovery room in stable condition. Raad Boston MD
[2019-01-17 07:15] LABS: BASO % 1.2 % (0.0-2.0); EOS # 0.1 K/uL (0.0-0.7); EOS % 3.3 % (0.0-4.0); HEMOGLOBIN 13.4 g/dL (11.0-16.0); LYMPH # 1.3 K/uL (1.0-4.3); LYMPH % 30.5 % (20.0-40.0); MEAN CELL VOLUME 96.6 fL (81.0-99.0); MEAN CORPUSCULAR HEMOGLOBIN 32.4 pg (27.0-31.0); MEAN CORPUSCULAR HGB CONC 33.5 g/dL (33.0-37.0); MEAN PLATELET VOLUME 9.2 fL (7.2-11.7); MONO # 0.4 K/uL (0.0-0.8); MONO % 8.2 % (0.0-10.0); NEUT # 2.4 K/uL (1.8-7.0); NEUT % 56.8 % (50.0-75.0); RBC 4.13 Mil/uL (3.80-5.20); RED CELL DISTRIBUTION WIDTH 13.1 % (11.5-14.5); WHITE BLOOD COUNT 4.3 K/uL (4.8-10.8)
[2019-01-17 07:54] LABS: ALB/GLOB RATIO 1.5 (1.0-2.1); ALBUMIN 3.9 g/dL (3.5-5.0); ALT/SGPT 33 U/L (9-52); AST/SGOT 39 U/L (14-36); BLOOD UREA NITROGEN 12 mg/dL (7-17); GFR NON-AFRICAN AMERICAN > 60
--- NOTE | 2019-01-17 09:07 | CP.PCM.PN ---
<Lyle Mohan - Last Filed: 01/17/19 16:56> Subjective - Date & Time of Evaluation Date of Evaluation: 01/17/19 Time of Evaluation: 08:00 - Subjective Subjective: PGY-[address] Omar Dao service Patient is seen and examined this morning at bedside. Patient observed to be standing and walking around room earlier. Patient denies any acute events overnight, states feeling well today. Denies pain or warmth in left hand, or any discharge or bleeding from dressing. Tolerating diet. Patient denies fever, chills, chest pain, sob, n/v/d/c or urinary symptoms. Patient is currently NPO, and is scheduled to return to OR under Dr Boston later this morning. Objective - Vital Signs/Intake and Output Vital Signs (last 24 hours): Temp Pulse Resp BP Pulse Ox 97.7 F 76 20 126/74 99 01/17/19 07:20 01/17/19 07:20 01/17/19 07:20 01/17/19 07:20 01/17/19 07:20 - Medications Medications: Current Medications Diltiazem HCl (Cardizem Cd) 120 mg PO HS DEONDRE Last Admin: 01/16/19 22:08 Dose: 120 mg Sodium Chloride (Sodium Chloride 0.9%) 1,000 mls @ 100 mls/hr IV .Q10H DEONDRE Last Admin: 01/16/19 11:35 Dose: 100 mls/hr Cefazolin Sodium 1,000 mg/ (Sodium Chloride) 100 mls @ 100 mls/hr IVPB Q8H DEONDRE; Protocol Last Admin: 01/17/19 06:20 Dose: 100 mls/hr Oxycodone/Acetaminophen (Percocet 5/325 Mg Tab) 2 tab PO Q4H PRN PRN Reason: pain Stop: 01/19/19 15:09 - Labs Labs: 01/17/19 07:05 01/17/19 07:05 - Constitutional Appears: Non-toxic, No Acute Distress - Head Exam Head Exam: ATRAUMATIC, NORMAL INSPECTION, NORMOCEPHALIC - Eye Exam Eye Exam: EOMI, Normal appearance - ENT Exam ENT Exam: Mucous Membranes Moist, Normal Exam - Neck Exam Neck Exam: Normal Inspection - Respiratory Exam Respiratory Exam: Clear to Ausculation Bilateral, NORMAL BREATHING PATTERN. absent: Accessory Muscle Use, Rales, Rhonchi, Wheezes, Respiratory Distress - Cardiovascular Exam Cardiovascular Exam: REGULAR RHYTHM, +S1, +S2 - GI/Abdominal Exam GI & Abdominal Exam: Soft, Normal Bowel Sounds. absent: Distended, Tenderness - Extremities Exam Extremities Exam: Full ROM, Normal Inspection. absent: Pedal Edema, Tenderness Additional comments: dressing wrapped around third finger left hand and around proximal area of hand. clean, dry and intact dressing observed. no erythema or warmth on left arm and hand. - Back Exam Back Exam: NORMAL INSPECTION - Neurological Exam Neurological Exam: Alert, Awake, Normal Gait, Oriented x3 - Psychiatric Exam Psychiatric exam: Normal Affect, Normal Mood - Skin Skin Exam: Dry, Normal Color, Warm Assessment and Plan - Assessment and Plan (Free Text) Plan: Right Hand 3rd Digit Ganglion Cyst/Abscess. Mgmt per Primary (Dr. Boston) Cefazolin 1gram Q8H Percocet 2tabs PO Q4H PRN NS 100mls/hr NPO this am, for surgery scheduled this am HTN Mgmt: Continue Cardizem 120mg PO HS Proph DVT: SCD Dispo: Management as per surgery. Patient stable from medical standpoint. Will sign off at this time, please re-consult as needed. Plan discussed with Dr Sylwia Mohan, PGY-1 <Omar Dao H - Last Filed: 01/17/19 17:45> Objective - Vital Signs/Intake and Output Vital Signs (last 24 hours): Temp Pulse Resp BP Pulse Ox 98.1 F 76 20 119/74 100 01/17/19 15:53 01/17/19 15:53 01/17/19 15:53 01/17/19 15:53 01/17/19 15:53 Intake and Output: 01/17/19 01/17/19 06:59 18:59 Intake Total 405 Balance 405 - Medications Medications: Current Medications Diltiazem HCl (Cardizem Cd) 120 mg PO HS DEONDRE Last Admin: 01/16/19 22:08 Dose: 120 mg Sodium Chloride (Sodium Chloride 0.9%) 1,000 mls @ 100 mls/hr IV .Q10H DEONDRE Last Admin: 01/16/19 11:35 Dose: 100 mls/hr Cefazolin Sodium 1,000 mg/ (Sodium Chloride) 100 mls @ 100 mls/hr IVPB Q8H DEONDRE; Protocol Last Admin: 01/17/19 13:59 Dose: 100 mls Oxycodone/Acetaminophen (Percocet 5/325 Mg Tab) 2 tab PO Q4H PRN PRN Reason: pain Stop: 01/19/19 15:09 - Labs Labs: 01/17/19 07:05 01/17/19 07:05 Attending/Attestation - Attestation I have personally seen and examined this patient.: Yes I have fully participated in the care of the patient.: Yes I have reviewed all pertinent clinical information, including history, physical exam and plan: Yes Notes (Text): Medical consult: Patient was seen and examined by me as well this morning with the medical residents Reviewed labwork with the patient. The recorded vital signs have been stable She was walking in the room. She reported no acute events overnight. She was pending going back to the OR later in the day At this time will sign off, please reconsult if necessary thank you, Omar Dao
[2019-01-17] MEDS ORDERED: diltiaZEM 120 mg/24 Hours CD Cap PO SCH (10:00)
[2019-01-17] MEDS ORDERED: Lidocaine Hydrochloride 10 ML INJ ONE (13:34)
[2019-01-17] MEDS ORDERED: Bupivacaine HCl 0.25% PF (10 ml) Inj ONE (13:34)
[2019-01-17] MEDS ORDERED: ceFAZolin 1 gm in NS 1 GM/100 ML BAG IVPB ONE (13:34)
--- NOTE | 2019-01-17 19:52 | CARD ---
APPROVED REPORT Date of service: 01/16/2019 EKG Measurement Heart [id number] <Conclusion> Normal sinus rhythm Nonspecific T wave abnormality Abnormal ECG
[2019-01-17] MEDS: diltiaZEM 120 mg/24 Hours CD Cap PO SCH (21:49)
--- NOTE | 2019-01-17 23:35 | OP ---
PROCEDURE DATE: 01/17/2019 PREOPERATIVE DIAGNOSIS: Open wound of the right third finger with possible osteomyelitis. POSTOPERATIVE DIAGNOSIS: Open wound of the right third finger with possible osteomyelitis. PROCEDURE: Re-debridement of wound and re-drainage of osteomyelitis with partial tissue flap closure. SURGEON: Raad Boston MD TYPE OF ANESTHESIA: General. ESTIMATED BLOOD LOSS: 20 mL. POSTOPERATIVE CONDITION: Stable. INDICATIONS FOR SURGERY: This is a 68-year-old female with a staged procedure, taken back, yesterday underwent an open excision of two large masses of the finger, one infected in the distal tip, which is suspicious for an underlying osteomyelitis, taken back today for re-debridement and closure procedure. DESCRIPTION OF PROCEDURE: The patient was taken to the operating room, a digital block was placed at the base of the third finger and it was anesthetized, prepped and draped. The wound was again re-debrided distally. Bone biopsy was taken and osteomyelitis was re-drained and cultured. The proximal wound was also debrided aggressively. Bleeding digital vessel was again repaired and the wound was pulse irrigated with saline and Kantrex solution. Partial tissue flap closure was performed in the distal portion. On the central portion, the wound was left open and dressed with bacitracin. The patient tolerated the procedure well, returned to the recovery room in stable condition. Raad Boston MD
[2019-01-18 08:31] VITALS: BP 120/71; PULSE 81; TEMP 97.9; O2SAT 97
== END 2019-01-18 10:33 | disposition home or self-care (01) | DRG 581 ==
LOC: C.6T 09:50 → C.ER 09:50 → C.SDS 11:00 → C.9S 14:58 → C.6T 17:31
PROVIDERS: ADMIT Surgery; ATTEND Surgery
PROC: 0JBJ0ZZ Excision of Right Hand Subcutaneous Tissue and Fascia, Open Approach (ICD-10-PCS; 2019-01-16)
PROC: 0JXJ0ZZ Transfer Right Hand Subcutaneous Tissue and Fascia, Open Approach (ICD-10-PCS; principal; 2019-01-16 13:00)
PROC: 05QY0ZZ Repair Upper Vein, Open Approach (ICD-10-PCS; 2019-01-17)
PROC: 0PBT0ZX Excision of Right Finger Phalanx, Open Approach, Diagnostic (ICD-10-PCS; 2019-01-17)
PROC: 0HBFXZZ Excision of Right Hand Skin, External Approach (ICD-10-PCS; 2019-01-17)
DX: L08.9 Local infection of the skin and subcutaneous tissue, unspecified (principal); I10 Essential (primary) hypertension; J43.9 Emphysema, unspecified